=== PATIENT | female | born 1965 | race American Indian/Alaskan Native ===

== ENCOUNTER 2017-05-17 13:48 | Outpatient (CLI) | payer BC ==
--- NOTE | 2017-05-17 14:32 | Mammography Report ---
Bilateral mammogram: Compared to 05/07/16 and 04/12/15. CAD study utilized. Findings: Predominance adipose tissue bilaterally. Circumscribed low density nodules are identified bilaterally without significant interval change. No microcalcification. Benign calcifications bilaterally. Impression: Benign findings. Annual followup recommended. BI-RADS CATEGORY: 2 = Benign ACR BI-RADS MAMMOGRAPHIC CODES: 0 = Needs additional imaging evaluation; 1 = Negative; 2 = Benign; 3 = Probably benign; 4 = Suspicious; 5 = Malignant; 6 = Known biopsy-proven malignancy COMMENT: 1. Dense breast tissue, i.e., adenosis, fibrocystic changes, etc., may obscure an underlying neoplasm. 2. Approximately 10% of cancers are not detected with mammography. 3. A negative mammography report should not delay biopsy if a clinically suspicious mass is present. COMMENT: Patient follow-up letters are generated in [employer].
== END 2017-05-17 13:49 | disposition home or self-care (01) ==
LOC: MAMMO 13:48
PROVIDERS: ATTEND Obstetrics & Gynecology
DX: Z12.31 Encounter for screening mammogram for malignant neoplasm of breast (principal)
CPT/HCPCS: 77067; G0202

== ENCOUNTER 2018-05-19 15:02 | Outpatient (CLI) | payer BC ==
--- NOTE | 2018-05-20 08:34 | Mammography Report ---
BILATERAL DIGITAL SCREENING MAMMOGRAM with CAD: 05/19/18 15:02:00 CLINICAL: Routine screening. 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 A few new nodules in the outer right breast. No mass, architectural distortion or suspicious calcifications. IMPRESSION: No mammographic evidence of malignancy. Neurofibromatosis and benign skin nodules. BI-RADS CATEGORY: 2 -- Benign RECOMMENDATION: Routine mammographic screening in one year. COMMENT: Patient follow-up letters are generated by our [employer] application.
== END 2018-05-19 15:03 | disposition home or self-care (01) ==
LOC: MAMMO 15:02
PROVIDERS: ATTEND Obstetrics & Gynecology
DX: Z12.31 Encounter for screening mammogram for malignant neoplasm of breast (principal)
CPT/HCPCS: 77067

== ENCOUNTER 2019-05-21 14:24 | Outpatient (CLI) | payer BC ==
--- NOTE | 2019-05-21 16:13 | Mammography Report ---
DIGITAL SCREENING MAMMOGRAM WITH CAD, 05/21/2019 INDICATION: Routine screening mammography. Neurofibromatosis. TECHNIQUE: Digital bilateral 2D mammography was obtained in the craniocaudal and mediolateral obliq ue projections. This examination was interpreted with the benefit of Computer-Aided Detection analysi s. COMPARISON: 05/19/2018 FINDINGS: Breast Density: The breasts are heterogeneously dense, which may obscure small masses. There is no evidence of dominant mass, suspicious calcifications or architectural distortion in eithe r breast. Numerous bilateral skin nodules consistent with neurofibromatosis. IMPRESSION: No mammographic evidence of malignancy. Follow up recommendation: Routine yearly BI-RADS Category 2: Benign. A "normal" or negative report should not discourage follow up or biopsy of a clinically significant f inding. A written summary of these findings will be mailed to the patient. The patient will be entered into a mammography reporting system which will generate a reminder letter for the patient's next appointmen t at the appropriate interval. The [employer] recommends yearly mammograms starting at age 40 and continuing as l ofelia as a woman is in good health. Breast MRI is recommended for women with an approximate 20-25% or greater lifetime risk of breast cancer, including women with a strong family history of breast or ova arrno cancer or who have been treated for Hodgkin's disease. Signer Name: Donaldo Hills MD Signed: 05/21/2019 4:09 PM Workstation Name: [id number]
== END 2019-05-21 14:25 | disposition home or self-care (01) ==
LOC: MAMMO 14:24
PROVIDERS: ATTEND Obstetrics & Gynecology
DX: Z12.31 Encounter for screening mammogram for malignant neoplasm of breast (principal)
CPT/HCPCS: 77067